=== PATIENT | male | born 1955 | race Caucasian/White ===

== ENCOUNTER 2020-11-17 10:46 | Outpatient (CLI) | payer SELFPAY | END 2020-11-17 10:47 | disposition home or self-care (01) | LOC: HS RAD 10:46 | PROVIDERS: ATTEND Internal Medicine | DX: R65.10 Systemic inflammatory response syndrome (SIRS) of non-infectious origin without acute organ dysfunction (principal); Z86.16 Personal history of COVID-19; J98.4 Other disorders of lung | CPT/HCPCS: 71045 ==